=== PATIENT | female | born 1940 | race Caucasian/White ===

== ENCOUNTER → 2019-04-17 | Outpatient (CLI) | payer MEDICARE, BC ==
--- NOTE | 2019-04-18 22:29 | ECHOS ---
STRESS ECHOCARDIOGRAM DATE OF SERVICE: 04/18/2019 INDICATIONS: Dyspnea. Chest pain. MEDICATIONS: Atenolol, enalapril, Synthroid. BASELINE HEART RATE: 86 BASELINE BLOOD PRESSURE: 132/85 MAXIMUM HEART RATE: 96 MAXIMUM BLOOD PRESSURE: 199/102 85% MPHR: 120 100% MPHR: 141 METS: 4.2 MAXIMUM STAGE REACHED: 1 TOTAL EXERCISE TIME: 2:30 CLINICAL INFORMATION: STRESS DATA: Pre-testing physical examination showed a heart rate of 86, pressure 132/85 mmHg. Baseline EKG showed sinus mechanism. The patient exercised on the treadmill according to Marc protocol for a total of 2 minutes and achieved 4.2 METs. Maximum heart rate was 96 beats per minute, which is about 68% of maximum predicted heart rate. Maximum blood pressure was 199/102 mmHg. Clinically the patient developed shortness of breath. The EKG did not show any significant ST or T-wave abnormalities concerning for ischemia. ECHOCARDIOGRAM: Images from the long-axis view, short-axis, apical 4-chamber and apical 2-chamber views were done as the baseline images, at the peak of the heart rate as well as on recovery. The echocardiogram images showed good augmentation in the left ventricular systolic function without any evidence of wall motion abnormalities concerning for ischemia. CONCLUSION: 1. Poor exercise tolerance. 2. Normal EKG in response to exercise. 3. Normal echocardiogram in response to exercise. 4. Overall nondiagnostic stress test due to the patient not achieving 85% of maximum predicted heart rate. The patient achieved only 68% of maximum predicted heart rate. MMROSARIOL / YANICKN: [id number] /
== END | disposition home or self-care (01) ==
LOC: RADNMMAIN 09:35
PROVIDERS: ATTEND Family Medicine
DX: R06.00 Dyspnea, unspecified (principal)
CPT/HCPCS: 93351